=== PATIENT | male | born 1930 | race Caucasian/White ===

== ENCOUNTER 2016-08-27 11:22 | Emergency (ER) | payer OTHER ==
[~2016-08-27] VITALS: Ht 160 cm; Wt 67.9 kg
[2016-08-27 11:28] VITALS: Ht 160 cm; Wt 67.9 kg
--- NOTE | 2016-08-27 12:40 | ERD ---
ER Documentation Chief Complaint Date/Time DATE: 08/27/16 TIME: 12:40 Chief Complaint HEAD "NOISY" X 3-4 MOS ,AP HPI 86y/o male ambulatory to the ED c/o mild, gradual onset occipital headache with a ringing sensation that has been worsening for 3-4 days. H/O same intermittently for several months. Denies neck or back pain. No tinnitus, hearing changes or dizziness. Denies visual changes, focal weakness or numbness. Constipation for 2 days without abdominal pain, nausea, vomting or diarrhea. No hematemesis, hematochezia or melanotic stools. Denies chest pain, palpitations or shortness of breath. No URI symptoms or cough. Denies anorexia, weight loss, fevers, chills or night sweats. ROS All systems reviewed and are negative except as per history of present illness. Medications Home Meds Active Scripts Polyethylene Glycol* (Miralax*) 17 Gm Powd.pack, 17 GM PO DAILY, #7 Prov:JOSE CARLOS SIMENTAL MD 08/27/16 Reported Medications [None] No Conflict Check 10/04/09 Allergies Allergies: Coded Allergies: No Known Drug Allergy (Verified Allergy, Mild, 10/04/09) PMhx/Soc Reviewed in chart. As per HPI. History of Surgery: No Anesthesia Reaction: No Hx Neurological Disorder: No Hx Respiratory Disorders: No Hx Cardiac Disorders: No Hx Psychiatric Problems: No Hx Miscellaneous Medical Probl: Yes (Constipation, prostatism) Hx Alcohol Use: No Hx Substance Use: No Hx Tobacco Use: No Smoking Status: Never smoker FmHx No stroke or cancer Physical Exam Vitals Vital Signs Date Time Temp Pulse Resp B/P Pulse Ox O2 Delivery O2 Flow Rate FiO2 08/27/16 14:58 97.6 70 17 110/65 100 Room Air 08/27/16 11:28 98.1 68 18 106/64 99 Physical Exam Const: Alert, no acute distress Head: Atraumatic Eyes: Normal Conjunctiva. Pupils equal reactive to light. Extraocular movements are intact. No nystagmus. ENT: Normal External Ears, Nose and Mouth. Neck: Full range of motion. Carotids 2+ bilaterally without bruits. No meningismus. Resp: Clear to auscultation bilaterally Cardio: Regular rate and rhythm, no murmurs Abd: Soft, non tender, non distended. Normal bowel sounds Skin: No petechiae or rashes Back: No midline or flank tenderness Ext: No cyanosis, or edema Neur: Awake and alert. Cranial nerves II through XII are grossly intact. No focal deficit observed. Motor and sensory equal bilaterally. Normal gait. Psych: Normal Mood and Affect Result Diagram: 08/27/16 1300 08/27/16 1300 Results 24 hrs Laboratory Tests Test 08/27/16 12:25 08/27/16 13:00 Urine Color LT. YELLOW Urine Clarity CLEAR Urine pH 5.5 Urine Specific [place] 1.025 Urine Ketones NEGATIVE Urine Nitrite NEGATIVE Urine Bilirubin NEGATIVE Urine Urobilinogen 0.2 E.U./dL Urine Leukocyte Esterase NEGATIVE Urine Hemoglobin NEGATIVE Urine Glucose NEGATIVE% Urine Total Protein NEGATIVE White Blood Count 3.810^3/ul Red Blood Count 3.8510^6/ul Hemoglobin 12.5g/dl Hematocrit 38.9% Mean Corpuscular Volume 101.0fl Mean Corpuscular Hemoglobin 32.5pg Mean Corpuscular Hemoglobin Concent 32.1g/dl Red Cell Distribution Width 13.8% Platelet Count 02496^3/UL Mean Platelet Volume 11.7fl Neutrophils % 54.3% Lymphocytes % 36.2% Monocytes % 8.4% Eosinophils % 0.8% Basophils % 0.3% Nucleated Red Blood Cells % 0.0/100WBC Neutrophils # 2.110^3/ul Lymphocytes # 1.410^3/ul Monocytes # 0.310^3/ul Eosinophils # 0.010^3/ul Basophils # 0.010^3/ul Nucleated Red Blood Cells # 0.010^3/ul Sodium Level 142mmol/L Potassium Level 4.2mmol/L Chloride Level 106mmol/L Carbon Dioxide Level 26mmol/L Anion Gap 14 Blood Urea Nitrogen 27mg/dl Creatinine 0.97mg/dl Glucose Level 95mg/dl Calcium Level 9.2mg/dl Total Bilirubin 0.5mg/dl Direct Bilirubin 0.00mg/dl Indirect Bilirubin 0.5mg/dl Aspartate Amino Transf (AST/SGOT) 25IU/L Alanine Aminotransferase (ALT/SGPT) 23IU/L Alkaline Phosphatase 90IU/L Total Protein 8.1g/dl Albumin 4.4g/dl Globulin 3.70g/dl Albumin/Globulin Ratio 1.18 IMAGING: PROCEDURE: Noncontrast CT Head. CLINICAL INDICATION: Headache. TECHNIQUE: Noncontrast CT of the head was obtained. The administered radiation dose was CTDI vol = 45.01 mGy, DLP = 630.2 mGy-cm. One or more of the following dose reduction techniques were used: Automated exposure control, Adjustment of the mA and/or kV according to patient size, or Use of iterative reconstruction technique. COMPARISON: There are no similar studies submitted for comparison. FINDINGS: There is minimal generalized cerebral volume loss. There is mild to moderate posterior predominant periventricular hypoattenuation suggesting chronic microvascular ischemic changes. There are mild vascular calcifications within the intracranial carotid arteries. There is no loss of harp-white differentiation to suggest acute territorial infarction. There is no acute intracranial hemorrhage or extra-axial fluid collection. There is no mass effect. No midline shift is identified. The orbits are within normal limits. The paranasal sinuses are well aerated. No destructive osseous lesion is identified. IMPRESSION: 1. No acute intracranial hemorrhage or extra-axial fluid collection. 2. Minimal generalized cerebral volume loss. 3. Mild to moderate chronic microvascular ischemic changes. Further findings as detailed above. RPTAT: AA .Klaus Vargas MD, MD Date Time Electronically viewed and signed by .Klaus Vargas MD, MD on 08/27/2016 13:46 .F/ Procedures/MDM DOCUMENTS REVIEWED: ED nurse, prior ED MEDICAL DECISION MAKINy/o male ambulatory to the ED c/o mild, gradual onset occipital headache with a ringing sensation that has been worsening for 3- [address] brain unremarkable for mass, bleed, hydrocephalus or infarct. Presentation not consistent with SAH, meningitis or encephalitis, hence LP not indicated. No vertigo or cerebellar findings. Mild dehydration without electrolyte abnormalities. Constipation without signs of obstruction. Abdomen is nontender without rebound, guarding or signs of peritonitis. In the absence of signs of serious illness symptomatic treatment is appropriate. Stable for discharge with precautionary instructions and outpatient followup as counseled. Counseled patient regarding diagnostic workup, diagnosis and need for followup. Understands to return to ED if symptoms recur, worsen or any other concerns. Departure Diagnosis: Primary Impression: Cephalgia Headache type: unspecified Headache chronicity pattern: unspecified pattern Intractability: not intractable Qualified Code: R51 - Nonintractable headache, unspecified chronicity pattern, unspecified headache type Additional Impressions: Constipation Constipation type: unspecified constipation type Qualified Code: K59.00 - Constipation, unspecified constipation type Mild dehydration Condition: Stable JOSE CARLOS SIMENTAL MD Aug 27, 2016 12:40
[2016-08-27 12:50] LABS: ADD UMIC NO; URINE BILIRUBIN (Dip) NEGATIVE (NEGATIVE); URINE BLOOD (Dip) NEGATIVE (NEGATIVE); URINE COLOR LT. YELLOW (YELLOW); URINE GLUCOSE (Dip) NEGATIVE (NEGATIVE); URINE KETONES (Dip) NEGATIVE (NEGATIVE); URINE LEUKOCYTE ESTERASE (Dip) NEGATIVE (NEGATIVE); URINE NITRITE (Dip) NEGATIVE (NEGATIVE); URINE TOTAL PROTEIN (Dip) NEGATIVE (NEGATIVE); URINE UROBILINOGEN (Dip) 0.2 E.U./dL (0.1-1.0)
[2016-08-27 13:16] LABS: ADD SCAN DIFF NO
[2016-08-27 13:18] LABS: BASOPHILS % 0.3 % (0.0-2.0); EOSINOPHILS % 0.8 % (0.0-7.0); HEMATOCRIT 38.9 % (42.0-52.0); HEMOGLOBIN 12.5 g/dl (14.0-18.0); LYMPHOCYTES # 1.4 10^3/ul (0.8-2.9); LYMPHOCYTES % 36.2 % (15.0-51.0); MEAN CORPUSCULAR HEMOGLOBIN 32.5 pg (29.0-33.0); MEAN CORPUSCULAR HGB CONC 32.1 g/dl (32.0-37.0); MEAN PLATELET VOLUME 11.7 fl (7.4-10.4); MONOCYTE # 0.3 10^3/ul (0.3-0.9); MONOCYTES % 8.4 % (0.0-11.0); NEUTROPHIL # 2.1 10^3/ul (1.6-7.5); NEUTROPHILS % 54.3 % (39.0-77.0); PLATELET COUNT 148 10^3/UL (140-415); RED BLOOD COUNT 3.85 10^6/ul (4.70-6.10); RED CELL DISTRIBUTION WIDTH 13.8 % (11.5-14.5); WHITE BLOOD COUNT 3.8 10^3/ul (4.8-10.8)
[2016-08-27 13:25] LABS: ALBUMIN 4.4 g/dl (3.3-4.9)
[2016-08-27 13:26] LABS: POTASSIUM 4.2 mmol/L (3.5-5.1)
[2016-08-27 13:28] LABS: ALBUMIN/GLOBULIN RATIO 1.18; BILIRUBIN,INDIRECT 0.5 mg/dl (0-1.1); BILIRUBIN,TOTAL 0.5 mg/dl (0.2-1.3); CREATININE 0.97 mg/dl (0.61-1.24); TOTAL PROTEIN 8.1 g/dl (6.1-8.1)
[2016-08-27 13:29] LABS: CALCIUM 9.2 mg/dl (8.4-10.2)
--- NOTE | 2016-08-27 13:46 | RADRPT ---
PROCEDURE: Noncontrast CT Head. CLINICAL INDICATION: Headache. TECHNIQUE: Noncontrast CT of the head was obtained. The administered radiation dose was CTDI vol = 45.01 mGy, DLP = 630.2 mGy-cm. One or more of the following dose reduction techniques were used: Aut omated exposure control, Adjustment of the mA and/or kV according to patient size, or Use of iterati ve reconstruction technique. COMPARISON: There are no similar studies submitted for comparison. FINDINGS: There is minimal generalized cerebral volume loss. There is mild to moderate posterior predominant periventricular hypoattenuation suggesting chronic m icrovascular ischemic changes. There are mild vascular calcifications within the intracranial youssef tid arteries. There is no loss of harp-white differentiation to suggest acute territorial infarction. There is no acute intracranial hemorrhage or extra-axial fluid collection. There is no mass effect. No midline shift is identified. The orbits are within normal limits. The paranasal sinuses are well aerated. No destructive osseous lesion is identified. IMPRESSION: 1. No acute intracranial hemorrhage or extra-axial fluid collection. 2. Minimal generalized cerebral volume loss. 3. Mild to moderate chronic microvascular ischemic changes. Further findings as detailed above. RPTAT: AA .Klaus Vargas MD, MD Date Time Electronically viewed and signed by .Klaus Vargas MD, on 08/27/2016 13:46 .F/
[2016-08-27] MEDS ORDERED: POLY17PO6 PO (14:37)
[2016-08-27 14:58] VITALS: BP 110/65; PULSE 70; RESP 17; TEMP 97.6
== END 2016-08-27 16:23 | disposition home or self-care (01) ==
LOC: E/R 11:22
DX: R51 Headache (principal); K59.00 Constipation, unspecified; E86.0 Dehydration
CPT/HCPCS: 70450; 80053; 81003; 85025